=== PATIENT | female | born 1995 | race Caucasian/White ===

== ENCOUNTER 2023-05-11 23:47 | Emergency (ER) | payer SELFPAY ==
[~2023-05-11] VITALS: Ht 157.5 cm; Wt 90.7 kg
[2023-05-11 23:58] VITALS: BP_SYST 132; PULSE 85; RESP 18; TEMP 98.6; O2SAT 97
== END 2023-05-12 00:45 | disposition home or self-care (01) ==
LOC: SED 23:47
DX: S93.402A Sprain of unspecified ligament of left ankle, initial encounter (principal); Z79.899 Other long term (current) drug therapy; X50.1XXA Overexertion from prolonged static or awkward postures, initial encounter; Y93.02 Activity, running; Y92.89 Other specified places as the place of occurrence of the external cause; Y99.8 Other external cause status
CPT/HCPCS: 81025; 99283